=== PATIENT | female | born 2000 | race Two or more races ===

== ENCOUNTER 2025-02-06 11:10 | Emergency (ER) | payer OTHER ==
[~2025-02-06] VITALS: Ht 160 cm; Wt 72.1 kg
--- NOTE | 2025-02-06 11:50 | ED.PDOC ---
History of Present Illness HPI Comments 24 y/o F, with no prior medical history presents to the ED for CC of generalized weakness. Patient states, that she has been experiencing generalized weakness with associated symptoms of nausea and shortness of breath since this morning (02/06/25). Patient endorses, that she is currently 7 weeks ; does not currently have an OB-BUSINESS ACCOUNT SPECIALIST. Patient denies abdominal cramping, vaginal cramping, vaginal bleeding, fever, chills, or body-aches. No other associated symptoms, modifiers, recent injuries or sick contacts present at this time. Chief Complaint: General Weakness Time Seen by MD: 11:10 Primary Care Provider: UNKNOWN Reviewed Notes: Nurses Notes, Medications, Allergies Allergies: Coded Allergies: NO KNOWN ALLERGIES (Unverified , 02/06/25) Information Source: Patient Mode of Arrival: Wheelchair Severity: Moderate Timing: Days Duration: Since onset Prehospital treatment: None Past Medical History PAST MEDICAL HISTORY: Denies Surgical History: Denies all surgeries BUSINESS ACCOUNT SPECIALIST History: Unknown Family History Family History: Unknown Social History Smoker: Non-Smoker Alcohol: Denies ETOH Use Drugs: Denies Drug Use Lives In: Home Constitutional: denies: chills, diaphoresis, fatigue, fever, malaise, sweats, weakness, others EENTM: denies: blurred vision, double vision, ear bleeding, ear discharge, ear drainage, ear pain, ear ringing, eye pain, eye redness, hearing loss, mouth pain, mouth swelling, nasal discharge, nose bleeding, nose congestion, nose p ain, photophobia, tearing, throat pain, throat swelling, voice changes, others Respiratory: reports: shortness of breath; denies: cough, hemoptysis, orthopnea, SOB at rest, SOB with excertion, stridor, wheezing, others Cardiovascular: denies: chest pain, dizzy spells, diaphoresis, Dyspnea on exertion, edema, irregular heart beat, left arm pain, lightheadedness, palpitations, PND, syncope, others Gastrointestinal: reports: nausea; denies: abdomen distended, abdominal pain, blood streaked bowels, constipated, diarrhea, dysphagia, difficulty swallowing, hematemesis, melena, poor appetite, poor fluid intake, rectal bleeding, rectal pain, vomiting, others Genitourinary: reports: ; denies: abnormal vagina bleeding, burning, dyspareunia, dysuria, flank pain, frequency, hematuria, incontinence, pain, vagina discharge, urgency, others Neurological: denies: dizziness, fainting, headache, left sided numbness, left sided weakness, numbness, paresthesia, pre-existing deficit, right sided numbness, right sided weakness, seizure, speech problems, tingling, tremors, weakness, others Musculoskeletal: denies: back pain, gout, joint pain, joint swelling, muscle pain, muscle stiffness, neck pain, others Integumetry: denies: bruises, change in color, change in hair/nails, dryness, laceration, lesions, lumps, rash, wounds, others Allergic/Immunocompromised: denies: Difficulty Healing, Frequent Infections, Hives, Itching, others Hematologic/Lymphatic: denies: anemia, blood clots, easy bleeding, easy bruising, swollen glands, others Endocrine: denies: excessive hunger, excessive sweating, excessive thirst, excessive urination, flushing, intolerance to cold, intolerance to heat, unexplained weight gain, unexplained weight loss, others Psychiatric: denies: anxiety, bipolar disorder, depression, hopeless, panic disorder, schizophrenia, sleepless, suicidal, others All Other Systems: Reviewed and Negative Physical Exam General Appearance: Moderate Distress HEENT: Normal ENT Inspection, Pharynx Normal, TMs Normal Neck: Full Range of Motion, Non-Tender, Normal, Normal Inspection Respiratory: Chest Non-Tender, Lungs Clear, No Accessory Muscle Use, No Respiratory Distress, Normal Breath Sounds Cardiovascular: No Edema, No JVD, No Murmur, No Gallop, Normal Peripheral Pulses, Regular Rate/Rhythm Breast Exam: Deferred Gastrointestinal: No Organomegaly, Non Tender, No Pulsatile Mass, Normal Bowel Sounds, Soft Genitalia: Deferred Pelvic: Deferred Rectal: Deferred Extremities: No calf tenderness, Normal capillary refill, Normal inspection, Normal range of motion, Non-tender, No pedal edema Musculoskeletal : Apperance: Normal Neurologic: Alert, carpentry supervisor II-XII nml as Tested, No Motor Deficits, Normal Affect, Normal Mood, No Sensory Deficits Cerebellar Function: NOT DONE Reflexes: NOT DONE Skin: Dry, Normal Color, Warm Peripheral Pulses: 3+ Radial (R), 3+ Radial (L) Lymphatic: No Adenopathy Was a procedure done? Was a procedure done?: No Differential Dx Considerations may include: , ELECTROLYTE IMBALANCE X-Ray, Labs, Meds, VS Vital Signs Date Time Temp Pulse Resp B/P (MAP) Pulse Ox O2 Delivery O2 Flow Rate FiO2 02/06/25 13:55 97.9 90 18 100/63 (75) 98 97.9 02/06/25 12:45 112 20 98 Room Air* 0 21 02/06/25 12:26 97.8 112 20 103/69 (80) 98 97.8 02/06/25 11:35 98.7 134 16 126/100 (109) 97 98.7 Lab Test 02/06/25 12:30 02/06/25 11:42 Range/Units Urine Color Light-orange Yellow Urine Clarity Turbid H Clear Urine pH 6.0 5.0-9.0 Urine Specific [place] 1.035 1.001-1.035 Urine Protein 2+ H Negative Urine Ketones 4+ H Negative Urine Blood Trace H Negative /uL Urine Nitrite Negative Negative Urine Bilirubin 1+ H Negative Urine Urobilinogen 3 H Negative mg/dL Urine Leukocyte Esterase 3+ Negative /uL Urine RBC 21 0 - 4 /hpf Urine Microscopic WBC 94 H 0-5 /HPF Urine Squamous Epithelial Cells Mod <5 /hpf Urine Bacteria Few H None Seen /hpf Urine Mucus Many None Seen Urine Glucose Trace Normal mg/dL Beta HCG, Quantitative > 769200.0 H 1.5-4.2 mIU/mL Current Medications Medications (Trade) Dose Ordered Sig/Isabelle Route Start Time Stop Time Status Last Admin Promethazine HCl (Phenergan Plain Syrup) 25 mg ONCE ONCE PO 02/06/25 11:30 02/06/25 11:31 DC 02/06/25 14:02 Sodium Chloride 1,000 ml @ 1,000 mls/hr Q1H ONCE IV 02/06/25 11:30 02/06/25 12:29 DC 02/06/25 14:02 Patient alert. Nauseated. Vitals stable. Answering questions. Establish intravenous access Was given fluids. She has not seen her OBGYN. She is not taking her vitamins. Reviewed her history. Continue monitoring. Urinalysis shows UTI. Was given prescription of Keflex antibiotic pain Ultrasound reviewed does not show any acute changes other than normal . Explained to the patient. Was told to follow up with her OBGYN. Was told to follow up with her primary care physician. Was told to come back if there is any problem. Time of 1ST Reevaluation: 11:40 Reevaluation 1ST: Unchanged Patient Education/Counseling: Diagnosis, Treatment Family Education/Counseling: No Family Present Departure 1 Departure Time of Disposition: 12:08 Impression: Primary Impression: Normal Qualified Codes: Z34.90 - Encounter for supervision of normal , unspecified, unspecified trimester Additional Impression: UTI (urinary tract infection) Qualified Codes: N30.01 - Acute cystitis with hematuria Disposition: HOME / SELF CARE / HOMELESS Condition: Good e-Prescriptions Cephalexin (KEFLEX CAPSULE) 250 Mg Cp 250 MG PO QID for 7 Days, #28 BOTTLE Prov: RULA MARCOS MD 02/06/25 Discharged With: Self Critical Care Note Critical Care Time?: No Stability Stability form required: No Heart Score Heart Score: Heart Score Response (Comments) Value History N/A 0 EKG N/A 0 Age N/A 0 Risk Factors N/A 0 Troponin N/A 0 Total 0 I personally scribed for RULA MARCOS MD ([email or web address]) on 02/06/25 at 11:50. Electronically submitted by Moon Charles ([email or web address]). I personally scribed for RULA MARCOS MD ([email or web address]) on 02/06/25 at 11:55. Electronically submitted by Moon Charles ([email or web address]). RULA MARCOS MD Feb 06, 2025 11:50
[2025-02-06 12:38] LABS: Urine Bacteria FEW /hpf (None Seen); Urine Blood TRACE /uL (Negative); Urine Clarity Turbid (Clear); Urine Color Light-Orange (Yellow); Urine Mucus MANY (None Seen); Urine Protein, UAD 2+ (Negative); Urine Specific Gravity 1.035 (1.001-1.035); Urine Squamous Epithelial Cell MOD /hpf (<5); Urine Urobilinogen 3 mg/dL (Negative); Urine WBC 94 /HPF (0-5)
[2025-02-06 12:45] VITALS: PULSE 112; RESP 20; O2SAT 98
--- NOTE | 2025-02-06 13:35 | DVH ---
Ob ultrasound. First-trimester HISTORY: cramping TECHNIQUE: Real-time ultrasound was performed with sagittal and axial images submitted for evaluation . HISTORY BY DATES: 7 weeks. TATI 09/22/2025 FINDINGS: There is intrauterine gestational sac containing a pole. [place]-rump length 1.1 cm. S ac size 2.8 cm heart rate observed at 156 beats per minute. Adjacent to the gestational sac there is a small subchorionic hemorrhage measuring 9 x 7 x 5 mm Right ovary measures 3.8 x 1.8 x 2.4 cm and either contains or is adjacent to a thick walled cystic s tructure measuring 2.5 cm Left ovary unremarkable in appearance measuring 2.3 x 1.3 x 1.7 cm No free fluid IMPRESSION: 1. There is a single living 7 week size IUP with heart rate 156 beats per minute 2. There is a small subchorionic hemorrhage measuring 9 x 7 x 5 mm adjacent to this sac in the left f undal region 3. There is a 2.5 cm thick walled cystic structure in the right adnexa most likely representing hemor rhagic ovarian cyst. No free fluid
[2025-02-06 13:55] VITALS: BP 100/63; PULSE 90; RESP 18; TEMP 97.9; O2SAT 98
[2025-02-06] MEDS: SODIUM CHLORIDE 0.9% 1,000 ML IV ONE (14:02)
[2025-02-06] MEDS: PROMETHAZINE HCL 6.25 MG/5 ML ORAL SYRUP PO ONE (14:02)
[2025-02-06] MEDS ORDERED: CEPH250C PO (14:23)
[2025-02-06] MEDS: CEPHALEXIN 250 MG CAP PO ONE (14:31)
== END 2025-02-06 14:56 | disposition home or self-care (01) ==
LOC: ER 11:14
DX: O23.41 Unspecified infection of urinary tract in pregnancy, first trimester (principal); N39.0 Urinary tract infection, site not specified; R10.2 Pelvic and perineal pain; O26.891 Other specified pregnancy related conditions, first trimester; R11.0 Nausea; R06.02 Shortness of breath; Z3A.01 Less than 8 weeks gestation of pregnancy
CPT/HCPCS: 36415; 76801; 76817; 81001; 84702; 96360; 99284; J7030